=== PATIENT | female | born 1985 | race Caucasian/White ===

== ENCOUNTER 2020-09-16 21:47 | Emergency (ER) | payer BC ==
[2020-09-16 22:16] VITALS: BP 96/56; PULSE 80; TEMP 98.9; BMI 22.6
== END 2020-09-16 23:32 | disposition home or self-care (01) ==
LOC: FER 21:47
PROC: 2W3QX1Z Immobilization of Right Lower Leg using Splint (ICD-10-PCS; principal; 2020-09-16)
DX: S92.354A Nondisplaced fracture of fifth metatarsal bone, right foot, initial encounter for closed fracture (principal)
CPT/HCPCS: 73630-TC-RT-FY; 99283-25

== ENCOUNTER 2023-02-27 12:52 | Emergency (ER) | payer BC ==
[2023-02-27 12:57] VITALS: BP 97/63; PULSE 84; RESP 18; TEMP 98; BMI 23.6
[2023-02-27 13:32] LABS: HEMOGLOBIN 14.1 G/dL (10.7-15.3); MCH 31.8 pg (25.7-33.7); MCHC 32.7 g/dl (32.0-36.0); MEAN CELL VOLUME 97.2 fl (80-96); MEAN PLT VOLUME 8.4 fl (7.5-11.1); PLATELET COUNT 229.1 10^3/uL (134-434); RBC 4.42 10^6/uL (3.60-5.2); RDW 12.8 % (11.6-15.6); WHITE BLOOD COUNT 8.1 10^3/uL (4.0-10.8)
[2023-02-27 13:56] LABS: ALBUMIN 4.3 g/dl (3.4-5.0); BILIRUBIN,TOTAL 0.5 mg/dl (0.2-1); CALCIUM 9.7 mg/dl (8.5-10.1); CREATININE 0.7 mg/dl (0.6-1.3); POTASSIUM 3.4 mmol/L (3.5-5.1); TOT PROT 6.8 g/dl (6.4-8.2)
== END 2023-02-27 15:55 | disposition home or self-care (01) ==
LOC: FER 12:52
DX: R10.31 Right lower quadrant pain (principal)
CPT/HCPCS: 36415; 74177-TC; 80053; 81003; 83690; 84703; 85027; 99285-25; Q9967